=== PATIENT | male | born 1965 | race Caucasian/White ===

== ENCOUNTER 2020-11-12 23:56 | Emergency (ER) | payer BC ==
[~2020-11-12] VITALS: Ht 170.2 cm; Wt 109.0 kg
--- NOTE | 2020-11-13 00:30 | PHYS DOC ---
Adult General Chief Complaint Chief Complaint: DIZZY/LIGHT HEADED HPI HPI Patient is a 55-year-old male presenting with father for dizziness. Reports onset was within the past hour shortly after waking up. States he woke up from his sleep and rolled over and immediately began feeling dizzy. States it feels like he is on a [id number]. He ambulated to use the restroom and symptoms worsen prompting him to report symptoms to his father and ultimately be transported to our facility. On arrival, patient reports ongoing symptoms with nausea and x1 episode of nonbloody nonbilious emesis. He has never had this before. Has history of hypertension and neuropathy with no major changes in medications, no recent changes in health, concerning ingestions, exposure, no tobacco alcohol or illicit drug use. Patient does admit he has gotten over a recent URI within the past 2 weeks that resolved without antibiotic therapy. Denies any motor or sensory or neuro function changes Review of Systems Review of Systems Fourteen body systems of review of systems have been reviewed. See HPI for pertinent positives and negative responses, other [place] all other systems are negative, non-pertinent or non-contributory Physical Exam Physical Exam Constitutional: Well developed, well nourished, no acute distress, non-toxic appearance. HENT: Normocephalic, atraumatic, bilateral external ears normal, oropharynx moist, no oral exudates, nose normal. Eyes: PERRLA, EOMI, conjunctiva normal, no discharge. Neck: Normal range of motion, no tenderness, supple, no stridor. Cardiovascular: Heart rate regular, sinus rhythm, no murmurs rubs or gallops Lungs & Thorax: Bilateral breath sounds clear to auscultation Abdomen: Bowel sounds normal, soft, no tenderness, no masses, no pulsatile masses. Nonsurgical abdomen, no peritoneal signs Skin: Warm, dry, no erythema, no rash. Back: No tenderness, no CVA tenderness. Extremities: No tenderness, no cyanosis, no clubbing, ROM intact, no edema. Neurologic: Alert and oriented X 3, cranial nerves II through XII intact, normal motor & sensory function, no focal deficits noted. Patient symptoms were recre ated and exacerbated with rotation of neck Psychologic: Affect normal, judgement normal, mood normal. Current Patient Data Vital Signs Vital Signs Date Time Temp Pulse Resp B/P (MAP) Pulse Ox O2 Delivery O2 Flow Rate FiO2 11/13/20 00:00 98.7 87 18 169/84 (112) 98 Room Air Vital Signs Date Time Temp Pulse Resp B/P (MAP) Pulse Ox O2 Delivery O2 Flow Rate FiO2 11/13/20 00:00 98.7 87 18 169/84 (112) 98 Room Air Lab Results Laboratory Tests Test 11/13/20 00:13 White Blood Count 8.4 x10^3/uL Red Blood Count 4.92 x10^6/uL Hemoglobin 15.2 g/dL Hematocrit 44.8 % Mean Corpuscular Volume 91 fL Mean Corpuscular Hemoglobin 31 pg Mean Corpuscular Hemoglobin Concent 34 g/dL Red Cell Distribution Width 12.9 % Platelet Count 234 x10^3/uL Neutrophils (%) (Auto) 56 % Lymphocytes (%) (Auto) 32 % Monocytes (%) (Auto) 10 % Eosinophils (%) (Auto) 2 % Basophils (%) (Auto) 0 % Neutrophils # (Auto) 4.7 x10^3uL Lymphocytes # (Auto) 2.7 x10^3/uL Monocytes # (Auto) 0.8 x10^3/uL Eosinophils # (Auto) 0.1 x10^3/uL Basophils # (Auto) 0.0 x10^3/uL Sodium Level 140 mmol/L Potassium Level 2.9 mmol/L Chloride Level 104 mmol/L Carbon Dioxide Level 28 mmol/L Anion Gap 8 Blood Urea Nitrogen 13 mg/dL Creatinine 0.9 mg/dL Estimated GFR (Cockcroft-Gault) 87.6 Glucose Level 115 mg/dL Calcium Level 9.1 mg/dL Magnesium Level 2.0 mg/dL Troponin I Quantitative < 0.017 ng/mL Current Medications Medications (Trade) Dose Ordered Sig/Isiah Route PRN Reason Start Time Stop Time Status Last Admin Dose Admin Meclizine HCl (Antivert) 25 mg 1X ONCE PO 11/13/20 00:45 11/13/20 00:46 DC 11/13/20 00:54 Ondansetron HCl (Zofran) 4 mg 1X ONCE IVP 11/13/20 01:00 11/13/20 01:01 DC 11/13/20 00:54 Potassium Chloride (Klor-Con) 40 meq 1X ONCE PO 11/13/20 01:30 11/13/20 01:31 DC EKG EKG EKG ordered and interpreted by myself at 0 30 hours is sinus rhythm at 95 bpm, unremarkable intervals, no axis deviation, no acute ischemic findings, no STEMI Radiology/Procedures Radiology/Procedures [] Heart Score C/O Chest Pain: No HEART Score for Chest Pain: HEART Score for Chest Pain Response (Comments) Value History Slighlty/Non-Suspicious 0 ECG Normal 0 Age >45 - < 65 1 Risk Factors 1 or 2 Risk Factors 1 Troponin < Normal Limit 0 Total 2 Risk Factors: Risk Factors: DM, Current or recent (<one month) smoker, HTN, HLP, family history of CAD, obesity. Risk Scores: Risk Factors: DM, Current or recent (<one month) smoker, HTN, HLP, family history of CAD, obesity. Course & Med Decision Making Course & Med Decision Making ABCs unremarkable HPI, physical exam and comprehensive ER work-up nonconcerning for any emergent or surgical issues I disclosed most likely diagnosis of vertigo that improved with Zofran, meclizine while in ER setting. Patient symptoms nearly totally resolved as patient was now ambulatory and well-appearing at time of ER departure Also discussed diagnosis of hypokalemia. Unsure the source of this but is unlikely causing patient's symptoms. Patient is on amlodipine and an CIARA inhibitor. 40 mEq potassium given while in ER which short-term potassium supplementation and close outpatient PCP follow-up advised I reiterated need for PCP follow-up for repeat labs to evaluate hypokalemia in addition to evaluate resolution of patient's dizziness that is likely vertigo in nature. I disclosed outpatient consultation with ENT or other subspecialist might be indicated I did fully disclose that I cannot fully rule out a stroke at this time without any further diagnostic imaging such as CT head. With that said, joint decision to defer this due to low likelihood of actual cause of patient's symptoms given improvement with meclizine Strict return precautions discussed with good understanding by patient and father at bedside, all questions and concerns addressed prior to ER departure Dragon Disclaimer Dragon Disclaimer This electronic medical record was generated, in whole or in part, using a voice recognition dictation system. Departure Departure: Impression: Primary Impression: Dizziness Additional Impression: Vertigo Disposition: HOME / SELF CARE / HOMELESS Condition: IMPROVED Referrals: ARIEL BAE MD (PCP) Patient Instructions: Vertigo Additional Instructions: You were seen for dizziness. Your laboratory analysis here was normal as was your EKGs. It is unclear what caused your symptoms but your initial evaluation did not show any concerning symptoms or features. This could be something called vertigo, which should improve with time. Take the prescriptions provided as directed to help with symptoms. Return to the ED immediately if you develop worsening symptoms, chest pain, shortness of breath, numbness, tingling, weakness, vision change, or any other new or concerning symptoms. You should follow up with your primary care doctor in a few days to week for reevaluation. Scripts Meclizine Hcl (MECLIZINE HCL) 25 Mg Tablet 1 TAB PO PRN TID for DIZZINESS, #30 TAB Prov: WONG PANDEY DO 11/13/20 Problem Qualifiers WONG PANDEY DO Nov 13, 2020 00:30
[2020-11-13] MEDS: MECLIZINE 12.5 MG TABLET. PO ONE (00:54)
[2020-11-13] MEDS: ONDANSETRON PF 4 MG/2 ML VIAL. IVP ONE (00:54)
[2020-11-13 01:00] LABS: CALCIUM 9.1 mg/dL (8.5-10.1); CREATININE 0.9 mg/dL (0.7-1.3); GFR 87.6
[2020-11-13 01:12] LABS: POTASSIUM 2.9 mmol/L (3.5-5.1)
--- NOTE | 2020-11-13 01:12 | EKG ---
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
[2020-11-13 01:27] LABS: BASO % 0 % (0-3); EOS # 0.1 x10^3/uL (0.0-0.7); EOS % 2 % (0-3); HEMATOCRIT 44.8 % (39.0-53.0); HEMOGLOBIN 15.2 g/dL (13.0-17.5); LYMPH # 2.7 x10^3/uL (1.0-4.8); LYMPH % 32 % (24-48); MEAN CORPUSCULAR HEMOGLOBIN 31 pg (25-35); MEAN CORPUSCULAR HGB CONC 34 g/dL (31-37); MEAN CORPUSCULAR VOLUME 91 fL (79-100); MONO # 0.8 x10^3/uL (0.0-1.1); MONO % 10 % (0-9); NEUT # 4.7 x10^3uL (1.8-7.7); NEUT % 56 % (31-73); PLATELET COUNT 234 x10^3/uL (140-400); RED BLOOD COUNT 4.92 x10^6/uL (4.30-5.70); RED CELL DISTRIBUTION WIDTH 12.9 % (11.5-14.5); WHITE BLOOD COUNT 8.4 x10^3/uL (4.0-11.0)
[2020-11-13 01:30] VITALS: BP 154/88
[2020-11-13] MEDS: POTASSIUM CHLORIDE 20 MEQ TABLET.ER. PO ONE (01:42)
[2020-11-13] MEDS ORDERED: MECL-75 PO (01:47)
[2020-11-13] MEDS ORDERED: POTA20TA4 PO (01:49)
== END 2020-11-13 01:55 | disposition home or self-care (01) ==
LOC: ER 23:56
DX: R42 Dizziness and giddiness (principal)
CPT/HCPCS: 36415; 80048; 83735; 84484; 85025; 93005; 96374; 99284; J2405